=== PATIENT | male | born 2000 | race Caucasian/White ===

== ENCOUNTER 2022-01-23 06:33 | Emergency (ER) | payer OTHER, SELFPAY ==
--- NOTE | ~2022-01-23 | CT_ITS ---
EXAMINATION: CT abdomen pelvis w con DATE: 01/23/2022 07:30 INDICATION: Upper abdominal pain. Cystic fibrosis. TECHNIQUE: Computed tomography (CT) of the abdomen and pelvis was performed with 100 mL Omnipaque-350 intravenous contrast. Automated exposure control and iterative reconstruction technique were employe d. The dose-length product was 209.72 mGy-cm. COMPARISON: 10/29/2015 FINDINGS: Lung bases are clear. The left inferior heart is normal. No pericardial or pleural effusion. Diffuse hepatic steatosis. Cholecystectomy clips the gallbladder fossa. 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 Bilateral adrenal glands and kidneys are normal. Large amount of stool throughout the colon consiste nt with constipation. Small bowel anastomosis in the left upper quadrant. There are fluid-filled loop s of small bowel but without manjit dilation to suggest obstruction. Normal retrocecal appendix. Bladd er is normal. No free intraperitoneal gas or fluid. No pathologically enlarged abdominal or pelvic ly mphadenopathy. Bones are unremarkable. IMPRESSION: 1. Large amount of colonic stool consistent with constipation. No other acute intra-abdominal/pelvic process. 2. 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 Reviewed, dictated and finalized at location A. IMPRESSION: 1. Large amount of colonic stool consistent with constipation. No other acute i ntra-abdominal/pelvic process. 2. Status post cholecystectomy, splenectomy and pancreatectomy with reported pr ior hepatic pancreatic islet cell transplant..
[2022-01-23 06:36] VITALS: BP 132/94; PULSE 95; RESP 18; TEMP 36.6; O2SAT 100
[2022-01-23 07:05] LABS: Basophils Absolute Auto 0.1 K/mm3 (0.0-0.1); Basophils Percent Auto 0.7 % (0.2-1.2); Eosinophils Absolute Auto 0.2 K/mm3 (0-0.3); Eosinophils Percent Auto 1.6 % (0-4.4); Hematocrit 35.1 % (42.0-52.0); Hemoglobin 11.7 g/dL (14.0-18.0); Immature Granulocyte Absolute 0.02 K/mm3 (0.00-0.031); Immature Granulocyte Percent A 0.2 % (0-0.5); Lymphocytes Absolute Auto 5.19 K/mm3 (0.9-3.2); Lymphocytes Percent Auto 46.6 % (18.3-44.2); Mean Corpuscular HGB Conc 33.3 g/dl (32-36); Mean Corpuscular Hemoglobin 31.4 pg (26-34); Mean Corpuscular Volume 94.1 fl (80-100); Mean Platelet Volume 10.2 fl (7.4-10.4); Monocytes Absolute Auto 1.6 K/mm3 (0.1-0.6); Monocytes Percent Auto 13.9 % (2.6-8.5); Neutrophils Absolute Auto 4.1 K/mm3 (1.3-6.7); Platelet Count Result 261 k/mm3 (150-375); Red Blood Count 3.73 M/mm3 (4.6-6.20); Red Cell Distribution Width 12.5 % (11.5-14.5); White Blood Count 11.1 K/mm3 (4.5-10.0)
[2022-01-23] MEDS: SODIUM CHLORIDE 0.9% IV 1,000 ML 999 ML IV CONT (07:06)
--- NOTE | 2022-01-23 07:08 | ED.ABDPAIN ---
HPI - Abdominal Pain General Chief Complaint: Abdominal Pain Stated Complaint: abdominal pain, anxiety Time Seen by Provider: 01/23/22 06:47 Source: patient Mode of arrival: ambulatory Limitations: no limitations History of Present Illness HPI narrative: Patient is a 21-year-old male complaining of upper epigastric pain accompanied by nausea that started last night. Patient states his pain is sharp, 7 out of 10, nonradiating. Patient denies any chest pain, shortness of breath, vomiting, diarrhea, urinary symptoms, fever or chills. Patient states that he has a history of pancreatic surgery in the past due to pancreatitis. Related Data Home Medications Medication Instructions Recorded Confirmed mezboj-oanoexrj-aogdrzf [Creon] cap PO 01/23/22 01/23/22 Allergies Allergy/AdvReac Type Severity Reaction Status Date / Time morphine Allergy Intermediate Unknown Verified 01/23/22 06:52 Sulfa (Sulfonamide Allergy Unknown Unknown Verified 01/23/22 06:52 Antibiotics) Review of Systems Review of Systems: All systems reviewed & are unremarkable except as noted in HPI and below Constitutional: Constitutional: Denies body ache(s), Denies chills, Denies excessive sweating, Denies fatigue, Denies fever(s), Denies headache(s), Denies lethargy, Denies malaise, Denies weakness and Denies weight loss Eyes: Eyes: Denies blurry vision, Denies change in vision and Denies loss of vision ENT: Denies dizziness, Denies ear discharge, Denies headache(s), Denies lip swelling, Denies epistaxis, Denies nasal congestion, Denies neck pain, Denies throat swelling and Denies tongue swelling Cardiovascular: Cardiovascular: Denies chest pain, Denies chest pain at rest, Denies chest pain with activity, Denies diaphoresis, Denies rapid heart rate, Denies edema, Denies irregular heart rhythm, Denies lightheadedness, Denies palpitations, Denies dyspnea and Denies dyspnea on exertion Respiratory: Respiratory: Denies chest congestion, Denies cough, Denies hemoptysis, Denies dyspnea and Denies dyspnea on exertion Gastrointestinal: Gastrointestinal: Denies melena, Denies hematochezia, Denies diarrhea, Denies vomiting and Denies hematemesis Musculoskeletal: Musculoskeletal: Denies abnormal gait, Denies deformity, Denies joint swelling, Denies limited range of motion, Denies neck pain and Denies numbness Neurologic: Denies Abnormal speech present, Denies abnormal gait, Denies confusion, Denies dizziness, Denies headache(s), Denies focal weakness, Denies loss of vision, Denies numbness, Denies Other visual disturbances, Denies Sensory deficit (Neuro) and Denies weakness Psychiatric: Psychiatric: Denies confusion, Denies depression, Denies auditory hallucinations, Denies homicidal ideation and Denies suicidal ideation Endocrine: Endocrine: Denies cold intolerance, Denies excessive sweating, Denies fatigue, Denies heat intolerance and Denies palpitations Hematologic/Lymphatic: Hematologic/Lymphatic: Denies easy bleeding and Denies easy bruising Allergic/Immunologic: Allergic/Immunologic: Denies lip swelling, Denies throat swelling and Denies tongue swelling PMFSH Past Medical History Medical History Anxiety Cystic fibrosis Surgical History Surgical History History of pancreatectomy Family History Family History Other Carcinoma of colon Colon polyp Diabetes mellitus Heart disease Hypertension Thyroid disorder Social History Social History Tobacco type: e-cigarettes/vaping Alcohol intake: never Substance use: never Course Vital Signs Vital signs: Vital Signs Temperature 36.6 C 01/23/22 06:36 Pulse Rate 95 01/23/22 06:36 Respiratory Rate 18 01/23/22 06:36 Blood Pressure 132/94 H 01/23/22 06:36 Pulse
[2022-01-23 07:17] LABS: Alanine Aminotransferase 32 U/L (4-50); Albumin Level 3.7 g/dL (3.5-5.1); Alkaline Phosphatase 146 U/L (38-126); Anion Gap 7 mmol/L (8-16); Aspartate Amino Transferase 47 U/L (17-59); Bilirubin,Total 0.9 mg/dL (0.2-1.3); Blood Urea Nitrogen 6 mg/dL (9-20); Calcium 8.1 mg/dL (8.4-10.2); Carbon Dioxide 32 mmol/L (22-30); Chloride 99 mmol/L (98-107); Estimated CRCL calculation 120 ml/min; Estimated Glomerular Filt Rate > 60; Glucose 96 mg/dL (65-110); Sodium 138 mmol/L (137-145)
[2022-01-23 07:18] LABS: Lipase < 10 U/L (23-300)
[2022-01-23 07:22] LABS: Appearance Urine Clear (Clear); Bilirubin Urine Negative (Negative); Blood Urine Negative (Negative); Color Urine Yellow (Yellow); Glucose Urine UA Negative (Negative); Ketones Urine Negative (Negative); Leukocyte Esterase Ur Negative LEU/UL (Negative); Nitrate Urine Negative (Negative); Protein Urine Negative (Negative); Urobilinogen Urine 0.2 mg/dL (<2.0)
--- NOTE | 2022-01-23 07:25 | PC.NURSE ---
Pt in CT scan via stretcher at this time.
[2022-01-23 07:40] LABS: Add Urine Microscopic? NO
[2022-01-23] MEDS: PROMETHAZINE HCL 25 MG/ML AMPUL 12.5 MG IV PUSH (07:48)
[2022-01-23 07:59] VITALS: BP 124/71; PULSE 98; RESP 14; O2SAT 97
[2022-01-23 09:02] VITALS: BP 127/82; PULSE 103; RESP 15; O2SAT 100
[2022-01-23] MEDS: POTASSIUM CHLORIDE 20 MEQ PACKET (FOR LIQUID) 40 MEQ PO (09:02)
== END 2022-01-23 09:35 | disposition home or self-care (01) ==
PROVIDERS: Emergency Provider Emergency Medicine; PCP Family Medicine
DX: R10.13 Epigastric pain (principal); R11.0 Nausea; E84.9 Cystic fibrosis, unspecified; F17.290 Nicotine dependence, other tobacco product, uncomplicated; Z90.410 Acquired total absence of pancreas; Z90.81 Acquired absence of spleen
CPT/HCPCS: 36415; 74177; 80053; 81003; 83690; 85025; 96361; 96374; 99284; A9270; J2550; J7030; Q9967

== ENCOUNTER 2022-10-09 08:16 | Emergency (ER) | payer OTHER, SELFPAY ==
[2022-10-09] VITALS (23 sets, daily range): BP systolic 120–141; BP diastolic 84–94; PULSE 80–116; RESP 12–27; TEMP 36.6; O2SAT 94–100
--- NOTE | ~2022-10-09 | CT_ITS ---
EXAMINATION: CT abdomen pelvis w con DATE: 10/09/2022 10:20 INDICATION: Abdominal pain. TECHNIQUE: Computed tomography (CT) of the abdomen and pelvis was performed with 100 mL Omnipaque 350 intravenous contrast. Automated exposure control and iterative reconstruction technique were employe d. The dose-length product was 215.12 mGy-cm. COMPARISON: CT abdomen and pelvis 01/23/2022 FINDINGS: The visualized portions of the lung bases are clear without pneumonia or pleural effusion. The heart size is normal. No pericardial effusion. The liver is normal. There are changes of cholecys tectomy. There are changes of splenectomy and pancreatectomy. The adrenal glands are normal. Right ki dney is normal. There is a 13 mm stone in left kidney. There is mild left hydronephrosis and hydroure ter. There is urothelial thickening and enhancement in left renal pelvis. There is a large volume of stool in the colon. The colon is distended. There are no pathologically enlarged lymph nodes. There i s no free intraperitoneal fluid. There are old healed right rib fractures. IMPRESSION: 1. Distention of the colon with large volume of stool. 2. Left-sided pyelitis. Mild left hydronephrosis and hydroureter may be secondary to mass effect from the distended colon. 3. Nonobstructing left kidney stone. Reviewed, dictated and finalized at location A. RECLAIM PROCESSOR IMPRESSION: 1. Distention of the colon with large volume of stool. 2. Left-sided pyelitis. Mild left hydronephrosis and hydroureter may be seconda ry to mass effect from the distended colon. 3. Nonobstructing left kidney stone.
--- NOTE | ~2022-10-09 | XR_ITS ---
EXAMINATION: XR chest 2V DATE: 10/09/2022 09:01 INDICATION: Chest pain. TECHNIQUE: Frontal and lateral views of the chest were obtained. COMPARISON: None. FINDINGS: There is no pneumonia, pleural effusion, or pneumothorax. There are old healed right rib fr actures. There are surgical clips in the abdomen. IMPRESSION: 1. No acute cardiopulmonary disease. Reviewed, dictated and finalized at location A. 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
--- NOTE | 2022-10-09 08:17 | ECG_ITS ---
Measurements Intervals [place] Rate: 89 P: 79 VA: 193 QRS: 64 QRSD: 129 T: 60 QT: 337 QTc: 411 Interpretive Statements SINUS RHYTHM MODERATE INTRAVENTRICULAR CONDUCTION DELAY [110+ ms QRS DURATION] NONSPECIFIC T-WAVE ABNORMALITY NO PREVIOUS ECG AVAILABLE FOR COMPARISON Electronically Signed On 10-09-2022 11:45:21 FLY WORKER by Janae Rees M.D.
--- NOTE | 2022-10-09 08:57 | PC.NURSE ---
Patient of unit to Radiology.
[2022-10-09] MEDS: LACTATED RINGERS 1,000 ML 999 ML IV CONT (09:10)
[2022-10-09] MEDS: ONDANSETRON INJ 4 MG/2 ML VIAL IV PUSH (09:10)
[2022-10-09] MEDS: KETOROLAC 15 MG/ML VIAL (*BKC) IV PUSH (09:10)
--- NOTE | 2022-10-09 09:13 | ED.GENADULT ---
HPI - General Adult General Chief complaint: Chest Pain Stated complaint: L sided cp Time Seen by Provider: 10/09/22 08:28 History of Present Illness HPI narrative: 22-year-old male with a history of cystic fibrosis, multiple abdominal surgeries presents for evaluation of left-sided rib and flank pain which is constant and nonradiating. Pain has been worsening over the past week. No vomiting. No bowel or bladder complaints. Related Data Home Medications Medication Instructions Recorded Confirmed bytawh-fsajchqa-uphlxci cap PO 01/23/22 01/23/22 12,000-38,000-60,000 unit capsule,delayed rel (Creon) Allergies Allergy/AdvReac Type Severity Reaction Status Date / Time morphine Allergy Intermediate Unknown Verified 10/09/22 09:09 Sulfa (Sulfonamide Allergy Unknown Unknown Verified 10/09/22 09:09 Antibiotics) Review of Systems Review of Systems: CONSTITUTIONAL: Denies fever, chills, or sweats. EYES: Denies visual changes, redness, or discharge. ENT: Denies rhinorrhea, congestion, sore throat, or otalgia. CARDIOVASCULAR: Denies chest pain, palpitations, or edema. RESPIRATORY: Denies cough or dyspnea. GASTROINTESTINAL: Denies abdominal pain, nausea, vomiting, or diarrhea. GENITOURINARY: Denies dysuria or hematuria. SKIN: Denies rash or itching. MUSCULOSKELETAL: Denies back pain, joint pain, or myalgia. NEUROLOGIC: Denies headache, numbness, or weakness. PSYCHIATRIC: Denies anxiety or depression. PMFSH Past Medical History Medical History Anxiety Cystic fibrosis Surgical History Surgical History History of pancreatectomy Family History Family History Other Carcinoma of colon Colon polyp Diabetes mellitus Heart disease Hypertension Thyroid disorder Social History Social History Tobacco type: e-cigarettes/vaping Alcohol intake: never Substance use: never Exam Narrative: GENERAL: Well-appearing, well-nourished, and in no acute distress. Cachectic HEAD: Normocephalic, atraumatic. EYES: PERRLA and EOMI. ENT: Nares clear, no rhinorrhea or epistaxis. Mucous membranes moist. NECK: Supple. CHEST: Clear to auscultation. No respiratory distress. HEART: Regular rate and rhythm. No murmur heard. Normal peripheral pulses. ABDOMEN: Soft, nontender, nondistended, normal active bowel sounds. EXTREMITIES: Normal range of motion. No edema. SKIN: Warm, dry, no rash. NEURO: No focal deficits. Alert and oriented x3. PSYCH: Normal mood and affect. Course Vital Signs Vital signs: Vital Signs Temperature 97.8 F 10/09/22 08:20 Pulse Rate 92 10/09/22 08:20 Respiratory Rate 20 10/09/22 08:20 Blood Pressure 141/94 H 10/09/22 08:20 Pulse Oximetry 99 10/09/22 08:20 Oxygen Delivery Room Air 10/09/22 08:20 Temperature 97.8 F 10/09/22 08:20 Pulse Rate 80 10/09/22 12:45 Respiratory Rate 16 10/09/22 12:45 Blood Pressure 130/84 10/09/22 12:45 Pulse Oximetry 97 10/09/22 12:45 Oxygen Delivery Room Air 10/09/22 09:10 Medical Decision Making MDM Narrative Medical decision making narrative: 1. Distention of the colon with large volume of stool. 2. Left-sided pyelitis. Mild left hydronephrosis and hydroureter may be secondary to mass effect from the distended colon. 3. Nonobstructing left kidney stone. The stone and significant stool burden noted in descending colon. Patient does admit to chronic constipation. No other pathology noted and labs are reassuring. Hematuria likely secondary to his nonobstructive kidney stone. He is stable for discharge home. I discussed all lab, imaging and exam findings with the patient and her friend at the bedside, all questions were answered, additional verbal discharge instructions and return to ED pr
[2022-10-09 09:15] LABS: Basophils Absolute Auto 0.1 K/mm3 (0.0-0.1); Basophils Percent Auto 0.4 % (0.2-1.2); Eosinophils Absolute Auto 0.1 K/mm3 (0-0.3); Eosinophils Percent Auto 0.5 % (0-4.4); Hemoglobin 13.1 g/dL (14.0-18.0); Immature Granulocyte Absolute 0.04 K/mm3 (0.00-0.031); Immature Granulocyte Percent A 0.3 % (0-0.5); Lymphocytes Absolute Auto 1.62 K/mm3 (0.9-3.2); Lymphocytes Percent Auto 12.9 % (18.3-44.2); Mean Corpuscular HGB Conc 32.8 g/dl (32-36); Mean Corpuscular Hemoglobin 29.9 pg (26-34); Mean Corpuscular Volume 91.3 fl (80-100); Mean Platelet Volume 9.9 fl (7.4-10.4); Monocytes Absolute Auto 1.1 K/mm3 (0.1-0.6); Monocytes Percent Auto 8.8 % (2.6-8.5); Neutrophils Absolute Auto 9.7 K/mm3 (1.3-6.7); Neutrophils Percent Auto 77.1 % (45.5-73.1); Platelet Count Result 381 k/mm3 (150-375); Red Blood Count 4.38 M/mm3 (4.6-6.20); Red Cell Distribution Width 13.8 % (11.5-14.5); White Blood Count 12.5 K/mm3 (4.5-10.0)
--- NOTE | 2022-10-09 09:20 | PC.NURSE ---
Patient off unit to CT.
[2022-10-09 09:21] LABS: Add Urine Microscopic? YES; Appearance Urine Clear (Clear); Bilirubin Urine Negative (Negative); Blood Urine 3+ (Negative); Color Urine Light Yellow (Yellow); Glucose Urine UA Negative (Negative); Ketones Urine Negative (Negative); Leukocyte Esterase Ur Negative LEU/UL (Negative); Nitrate Urine Negative (Negative); Protein Urine 2+ mg/dL (Negative); Specific Grav Ur 1.025 (1.001-1.035); Urobilinogen Urine 0.2 mg/dL (<2.0)
[2022-10-09 09:25] LABS: Alanine Aminotransferase 33 U/L (6-50); Albumin Level 3.9 g/dL (3.5-5.1); Alkaline Phosphatase 239 U/L (38-126); Anion Gap 8 mmol/L (8-16); Aspartate Amino Transferase 48 U/L (17-59); Bilirubin,Total 1.1 mg/dL (0.2-1.3); Blood Urea Nitrogen 8 mg/dL (9-20); Calcium 8.3 mg/dL (8.4-10.2); Carbon Dioxide 33 mmol/L (22-30); Chloride 98 mmol/L (98-107); Estimated Glomerular Filt Rate > 60; Glucose 142 mg/dL (65-110); Magnesium 1.7 mg/dL (1.6-2.3); Potassium 3.8 mmol/L (3.4-5.0); Sodium 139 mmol/L (137-145)
[2022-10-09 09:26] LABS: Lipase < 10 U/L (23-300)
[2022-10-09 09:34] LABS: Bacteria Urine Trace /hpf; Calcium Oxalate Crystals Urine Present /hpf; Mucus Urine Rare /lpf; RBC Urine >75 /hpf (0-2); Squamous Epithelial Cell Urine Rare /hpf (Few)
[2022-10-09 09:52] LABS: Acanthocytes 1+ (NORMAL); Anisocytosis 1+ (NORMAL); Ovalocytes 1+ (NORMAL); Schistocytes None Seen (NORMAL)
--- NOTE | 2022-10-09 11:12 | PC.NURSE ---
Patient report given to GRACIE Corona. All questions answered and care of patient transferred.
[2022-10-09] MEDS: PEG (High)/E-LYTE SOLN 4,000 ML BTL 4000 ML PO (13:27)
== END 2022-10-09 13:15 | disposition home or self-care (01) ==
PROVIDERS: Emergency Provider Emergency Medicine; PCP Family Medicine
DX: K59.00 Constipation, unspecified (principal); E84.9 Cystic fibrosis, unspecified; F17.290 Nicotine dependence, other tobacco product, uncomplicated; I45.9 Conduction disorder, unspecified; R94.31 Abnormal electrocardiogram [ECG] [EKG]; N13.6 Pyonephrosis
CPT/HCPCS: 36415; 71046; 74177; 80053; 81001; 83690; 83735; 85025; 93005; 96361; 96374; 96375; 99284; A9270; J1885; J2405; J7120; Q9967

== ENCOUNTER 2023-09-29 10:11 | Day surgery (SDC) | payer OTHER, SELFPAY ==
[2023-09-29] VITALS (10 sets, daily range): BP systolic 102–158; BP diastolic 56–107; PULSE 44–66; RESP 12–18; TEMP 36.4–36.8; O2SAT 99–100
--- NOTE | ~2023-09-29 | CT_ITS ---
CT of the Abdomen and Pelvis: Indication: Abdominal pain Technique: 2.5 mm axial scans were obtained through the abdomen and pelvis following intravenous adm inistration of 100 cc of Omnipaque 350. Dose reduction technique was used on this scan by utilizing a utomated exposure control and iterative reconstruction technique. The dose-length product (DLP) was 2 23.11 mGy-cm. COMPARISON: 10/09/2022 Findings: Scans through the lung bases are unremarkable. The liver, adrenals and right kidney are within normal limits. Cholecystectomy clips are present. 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 There is a 1.1 x 0.9 cm stone at the very proximal left ureter, with Hounsfield units of 1000, with moderate left hydronephrosis. No evidence of aortic aneurysm. No lymphadenopathy. No bowel obstruction or bowel wall thickening. Large amount of stool suggests constipation.. Images through the pelvis were performed. Urinary bladder unremarkable. No pelvic mass seen. No ascit es. Impression: 1.1 x 0.9 cm proximal left ureteral stone with moderate left hydronephrosis, as detailed above. Postoperative changes, as above. Constipation. Reviewed, dictated and finalized at location . D APPLICATION ENGINEER Impression: 1.1 x 0.9 cm proximal left ureteral stone with moderate left hydronephrosis, as detailed above. Postoperative changes, as above. Constipation.
--- NOTE | ~2023-09-29 | XR_ITS ---
EXAMINATION: XR retrograde pyelo w/stent LT DATE: 09/29/2023 14:11 INDICATION: Left internal ureteral stent placement TECHNIQUE: Fluoroscopic images from a left internal ureteral stent placement are submitted for review . 17 seconds of fluoroscopy time. FINDINGS: There is a left double-J internal ureteral stent projecting in expected position, with proximal [place] loop at the level of the renal pelvis. The distal loop is not visualized.. IMPRESSION: 1. Left internal ureteral stent placement. Please refer to real-time procedural findings for detail s. Reviewed, dictated and finalized at location L. WORKER IMPRESSION: 1. Left internal ureteral stent placement. Please refer to real-time procedur al findings for details.
--- NOTE | ~2023-09-29 | XR_ITS ---
XR abdomen/kub 1V 09/29/2023 13:39 Indication: Left proximal stone. Procedure: KUB Comparison: 12/15/2015 Findings: There is left hydronephrosis. There is focal narrowing at the left UPJ, suspicious for UPJ obstruction. There are nearby surgical changes in the left upper abdomen. Right renal collecting syst em is unremarkable. There is a large amount of gas in the sigmoid colon. Moderate colonic fecal loadi ng. Impression: 1: Possible left UPJ obstruction. 2: Large amount of retained fecal material in the colon with moderate dilation of the sigmoid colon. Reviewed, dictated and finalized at location L. ONAL ACCOUNT MANAGER Impression: 1: Possible left UPJ obstruction. 2: Large amount of retained fecal material in the colon with moderate dilation of the sigmoid colon.
[2023-09-29 11:25] LABS: Basophils Absolute Auto 0.1 K/mm3 (0.0-0.1); Basophils Percent Auto 0.5 % (0.2-1.2); Eosinophils Absolute Auto 0.2 K/mm3 (0-0.3); Eosinophils Percent Auto 1.1 % (0-4.4); Hematocrit 37.4 % (42.0-52.0); Hemoglobin 12.3 g/dL (14.0-18.0); Immature Granulocyte Absolute 0.07 K/mm3 (0.00-0.031); Immature Granulocyte Percent A 0.4 % (0-0.5); Lymphocytes Absolute Auto 2.75 K/mm3 (0.9-3.2); Lymphocytes Percent Auto 17.7 % (18.3-44.2); Mean Corpuscular HGB Conc 32.9 g/dl (32-36); Mean Corpuscular Hemoglobin 30.3 pg (26-34); Mean Corpuscular Volume 92.1 fl (80-100); Mean Platelet Volume 9.5 fl (7.4-10.4); Monocytes Absolute Auto 1.9 K/mm3 (0.1-0.6); Monocytes Percent Auto 12.3 % (2.6-8.5); Neutrophils Absolute Auto 10.6 K/mm3 (1.3-6.7); Platelet Count Result 325 k/mm3 (150-375); Red Blood Count 4.06 M/mm3 (4.6-6.20); Red Cell Distribution Width 12.7 % (11.5-14.5); White Blood Count 15.6 K/mm3 (4.5-10.0)
[2023-09-29 11:37] LABS: Appearance Urine Cloudy (Clear); Bilirubin Urine Negative (Negative); Blood Urine 1+ (Negative); Color Urine Yellow (Yellow); Glucose Urine UA Negative (Negative); Ketones Urine Trace mg/dL (Negative); Leukocyte Esterase Ur 2+ LEU/UL (Negative); Nitrate Urine Negative (Negative); Protein Urine Negative (Negative); Specific Grav Ur 1.012 (1.001-1.035); Urobilinogen Urine 0.2 mg/dL (<2.0); pH Urine 5.5 (5.0-9.0)
[2023-09-29] MEDS: SODIUM CHLORIDE 0.9% IV 1,000 ML 999 ML IV CONT ×2 (11:39→12:40)
[2023-09-29] MEDS: fentaNYL CITRATE INJ (*CRX) 100 MCG/2 ML VIAL 25 MCG IV PUSH ×2 (11:39→14:47)
[2023-09-29] MEDS: ONDANSETRON INJ 4 MG/2 ML VIAL IV PUSH (11:39)
[2023-09-29 11:40] LABS: Alanine Aminotransferase 27 U/L (6-50); Albumin Level 4.6 g/dL (3.5-5.1); Alkaline Phosphatase 166 U/L (38-126); Anion Gap 11 mmol/L (8-16); Aspartate Amino Transferase 35 U/L (17-59); Bilirubin,Total 1.9 mg/dL (0.2-1.3); Blood Urea Nitrogen 7 mg/dL (9-20); Calcium 9.2 mg/dL (8.4-10.2); Carbon Dioxide 27 mmol/L (22-30); Chloride 98 mmol/L (98-107); Estimated CRCL calculation 103 ml/min; Estimated Glomerular Filt Rate > 60; Glucose 125 mg/dL (65-110); Potassium 3.8 mmol/L (3.4-5.0); Sodium 136 mmol/L (137-145)
[2023-09-29 11:48] LABS: Bacteria Urine None Seen /hpf; Non Pathogenic Casts 0-2; Squamous Epithelial Cell Urine Occasional /hpf (Few); WBC Urine 21-50 /hpf
[2023-09-29 11:50] LABS: Add Urine Microscopic? YES
[2023-09-29 12:02] LABS: Lactic Acid Reflex 1.1 mmol/L (0.7-2.0); Magnesium 1.7 mg/dL (1.6-2.3)
[2023-09-29 12:09] LABS: Lipase < 10 U/L (23-300)
--- NOTE | 2023-09-29 12:16 | ED.NAVMDI ---
HPI - Nausea/Vomiting/Diarrhea General Chief complaint: Nausea/Vomiting/Diarrhea <YONATAN Bullock Last Filed: 09/29/23 18:46> Stated complaint: N/V ABD PAIN X2 DAYS <YONATAN Bullock Last Filed: 09/29/23 18:46> Time Seen by Provider: 09/29/23 11:04 <YONATAN Bullock Last Filed: 09/29/23 18:46> Source: patient <YONATAN Bullock Last Filed: 09/29/23 18:46> Mode of arrival: ambulatory <YONATAN Bullock Last Filed: 09/29/23 18:46> Limitations: no limitations <YONATAN Bullock Last Filed: 09/29/23 18:46> History of Present Illness HPI Narrative: Patient is a 23-year-old male, with past medical history of cystic fibrosis, who presents to the ED with report of upper abdominal pain. Patient reports having constant pain for the last 3 days. Pain waxes and wanes in severity. No significant aggravating or relieving factors. Radiates around to left mid back/left flank. He has not tried anything for the pain. 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 He states he does have intermittent episodes of pain related to this, but states this episode has been more severe and persistent. Reports nausea, intermittent vomiting. Denies diarrhea, constipation, fevers, dysuria, hematuria. <YONATAN Bullock Last Filed: 09/29/23 18:46> Related Data Home medications: Home Medications Medication Instructions Recorded Confirmed kawrur-wwmdkioi-cesbfni cap PO 01/23/22 10/15/22 12,000-38,000-60,000 unit capsule,delayed rel (Creon) <YONATAN Bullock Last Filed: 09/29/23 18:46> Allergies/Adverse reactions: Allergies Allergy/AdvReac Type Severity Reaction Status Date / Time morphine Allergy Intermediate Other Verified 09/29/23 13:46 Sulfa (Sulfonamide Allergy Unknown Hives Verified 09/29/23 13:46 Antibiotics) <Genia Abernathy PA-C - Last Filed: 09/29/23 18:46> Review of Systems Review of Systems: CONSTITUTIONAL: Denies fever, chills, or sweats. CARDIOVASCULAR: Denies chest pain, palpitations, or edema. RESPIRATORY: Denies cough or dyspnea. GASTROINTESTINAL: See HPI. GENITOURINARY: Denies dysuria or hematuria. SKIN: Denies rash or itching. MUSCULOSKELETAL: See HPI. <Genia Abernathy PA-C - Last Filed: 09/29/23 18:46> All systems reviewed & are unremarkable except as noted in HPI and below <Genia Abernathy PA-C - Last Filed: 09/29/23 18:46> PMFSH Past Medical History Medical History: Medical History Anxiety Cystic fibrosis <Genia Abernathy PA-C - Last Filed: 09/29/23 18:46> Surgical History Surgical History: Surgical History History of pancreatectomy <Genia Abernathy PA-C - Last Filed: 09/29/23 18:46> Family History Family History: Family History Other Carcinoma of colon Colon polyp Diabetes mellitus Heart disease Hypertension Thyroid disorder <YONATAN Bullock Last Filed: 09/29/23 18:46> Social History Social History: Social History Smoking status: Current some day smoker (vapes) Tobacco type: e-cigarettes/vaping Alcohol intake: never Substance use: never <YONATAN Bullock Last Filed: 09/29/23 18:46> Exam Narrative: GENERAL: Mildly uncomfortable appearing, thin, non-toxic, in no acute distress. HEAD: Normocephalic, atraumatic. NECK: Supple. No adenopathy, no masses. RESPIRATORY: Airway patent, respirations nonlabored. Clear to auscultation bilaterally, no rales, rhonchi, wheezing. No significant focal lung sounds. CARDIOVASCULAR: Regular rate
[2023-09-29] MEDS: HYDROmorphone HCL INJ (*CRX) 1 MG/ML SYR 0.5 MG IV PUSH (12:40)
[2023-09-29] MEDS: LACTATED RINGERS 1,000 ML 30 ML IV CONT (13:15)
--- NOTE | 2023-09-29 13:29 | WPDANESEPPF ---
Anes - Initial Pre Proc Eval Procedure: Operation Date: 09/29/23 14:15 Proposed Procedures p Cystoscopy, Left Retrograde Pyelogram, Left Stent Placement - Keenan Randall MD Date/Time: 09/29/23 13:29 Surgeon: Keenan Randall MD Pre Op Diagnosis: PER SURGERY SCHEDULE Patient Data Age: 23 Gender: M Height: 1.83 m Weight: 59 kg Last Vital Signs Temp 36.5 C 09/29/23 10:29 Pulse 66 09/29/23 12:45 Resp 15 09/29/23 12:45 BP 158/107 H 09/29/23 12:45 Pulse Ox 100 09/29/23 12:45 Allergies Allergy/AdvReac Type Severity Reaction Status Date / Time morphine Allergy Intermediate Unknown Verified 09/29/23 11:13 Sulfa (Sulfonamide Allergy Unknown Unknown Verified 09/29/23 11:13 Antibiotics) Home Medications Medication Instructions Recorded Confirmed Type albuterol sulfate 90 mcg/actuation 1 inh inhalation Q4H PRN shortness 11/12/21 10/15/22 Rx aerosol inhaler of breath or wheezing #8.5 grams kupffs-eqvxtitv-tplbory cap PO 01/23/22 10/15/22 History 12,000-38,000-60,000 unit capsule,delayed rel (Creon) bisacodyl 10 mg rectal suppository 10 mg RECTAL DAILY PRN 10/09/22 10/15/22 Rx (Dulcolax (bisacodyl)) constipation #12 ea psyllium seed (sugar) oral powder 1 tbsp PO DAILY #1,254 grams 10/09/22 10/15/22 Rx (Metamucil (sugar) oral powder) phenazopyridine 200 mg tablet 200 mg PO TID 6 doses #6 tabs 10/14/22 10/14/22 Rx (Pyridium) oxycodone 5 mg tablet 5 mg PO Q8H PRN pain #14 tabs 10/15/22 10/15/22 Rx duloxetine 60 mg capsule,delayed 60 mg PO DAILY #30 caps 03/23/23 Rx release Laboratory Tests 09/29/23 09/29/23 11:14 11:38 WBC 15.6 H K/mm3 (4.5-10.0) RBC 4.06 L M/mm3 (4.6-6.20) Hgb 12.3 L g/dL (14.0-18.0) Hct 37.4 L % (42.0-52.0) MCV 92.1 fl (80-100) MCH 30.3 pg (26-34) MCHC 32.9 g/dl (32-36) RDW 12.7 % (11.5-14.5) Plt Count 325 k/mm3 (150-375) MPV 9.5 fl (7.4-10.4) Immature Gran % (Auto) 0.4 % (0-0.5) Neut % (Auto) 68.0 % (45.5-73.1) Lymph % (Auto) 17.7 L % (18.3-44.2) [place] % (Auto) 12.3 H % (2.6-8.5) Eos % (Auto) 1.1 % (0-4.4) Baso % (Auto) 0.5 % (0.2-1.2) Lymph # (Auto) 2.75 K/mm3 (0.9-3.2) [place] # (Auto) 1.9 H K/mm3 (0.1-0.6) Eos # (Auto) 0.2 K/mm3 (0-0.3) Baso # (Auto) 0.1 K/mm3 (0.0-0.1) Abs Immat Gran (auto) 0.07 H K/mm3 (0.00-0.031) Absolute Neuts (auto) 10.6 H K/mm3 (1.3-6.7) Absolute Nucleated RBC 0.0 K/mm3 (0.0-0.012) Nucleated RBC % 0.0 % (0.0-0.2) Sodium 136 L mmol/L Cancelled (137-145) Potassium 3.8 mmol/L Cancelled (3.4-5.0) Chloride 98 mmol/L Cancelled (98-107) Carbon Dioxide 27 mmol/L Cancelled (22-30) Anion Gap 11 mmol/L Cancelled (8-16) BUN 7 L mg/dL Cancelled (9-20) Creatinine 0.80 mg/dL Cancelled (0.7-1.3) Estim Creat Clear Calc 103 ml/min Cancelled Estimated GFR > 60 Cancelled (59 - ) Glucose 125 H mg/dL Cancelled (65-110) Lactic Acid 1.1 mmol/L (0.7-2.0) Calcium 9.2 mg/dL Cancelled (8.4-10.2) Magnesium 1.7 mg/dL (1.6-2.3) Total Bilirubin 1.9 H mg/dL Cancelled (0.2-1.3) AST 35 U/L Cancelled (17-59) ALT 27 U/L Cancelled (6-50) Alkaline Phosphatase 166 H U/L Cancelled (38-126) Total Protein 8.0 g/dL Cancelled (6.3-8.2) Albumin 4.6 g/dL Cancelled (3.5-5.1) Lipase < 10 L U/L Cancelled (23-300) Urine Color Yellow (Yellow) Urine Appearance Cloudy H (Clear) Urine pH 5.5 (5.0-9.0) Ur Specific [place] 1.012 (1.001-1.035) Urine Protein Negative mg/dL (Negative) Urine Glucose (UA) Negative mg/dL (Negative) Urine Ketones Trace H mg/dL (Negative) Ur Blood (Man) 1+ H (Negative)
--- NOTE | 2023-09-29 13:41 | WPDHPUPDATE1 ---
History and Physical Update Update Date/Time: 09/29/23 13:41 History and Physical has been reviewed, including an updated exam of the patient. There are NO changes in the patient's condition. Risks, benefits, and alternatives have been discussed and questions answered. Patient agrees to proceed with procedure. Proceed with cystoscopy, left retrograde pyelogram left ureteral stent placement
--- NOTE | 2023-09-29 13:41 | PM.IMHP ---
H&P: HPI History of Present Illness Date/Time: 09/29/23 13:41 Chief Complaint: Obstructing 1 cm left proximal ureteral stone with elevated white count and UTI Narrative: Pleasant 23-year-old male presented to the emergency room with some left flank pain but also some abdominal discomfort. Patient has cystic fibrosis and has had prior abdominal surgeries. Evaluation in the emergency room revealed a 1 cm left proximal ureteral stone with some hydronephrosis. Urinalysis had 2+ leukocytes with 21-50 white cells. [place] [address] creatinine 0.8. Patient denies any prior history of stones. Review of Systems Review of Systems: All systems reviewed & are unremarkable except as noted in HPI and below PMFSH Past Medical History Medical History Anxiety Cystic fibrosis Surgical History Surgical History History of pancreatectomy Family History Family History Other Carcinoma of colon Colon polyp Diabetes mellitus Heart disease Hypertension Thyroid disorder Social History Social History Smoking status: Current some day smoker (vapes) Tobacco type: e-cigarettes/vaping Alcohol intake: never Substance use: never Meds Home Medications and Allergies Home Medications Medication Instructions Recorded Confirmed Type albuterol sulfate 90 mcg/actuation 1 inh inhalation Q4H PRN shortness 11/12/21 10/15/22 Rx aerosol inhaler of breath or wheezing #8.5 grams mkrnaz-hvlzrjum-udcdish cap PO 01/23/22 10/15/22 History 12,000-38,000-60,000 unit capsule,delayed rel (Creon) bisacodyl 10 mg rectal suppository 10 mg RECTAL DAILY PRN 10/09/22 10/15/22 Rx (Dulcolax (bisacodyl)) constipation #12 ea psyllium seed (sugar) oral powder 1 tbsp PO DAILY #1,254 grams 10/09/22 10/15/22 Rx (Metamucil (sugar) oral powder) phenazopyridine 200 mg tablet 200 mg PO TID 6 doses #6 tabs 10/14/22 10/14/22 Rx (Pyridium) oxycodone 5 mg tablet 5 mg PO Q8H PRN pain #14 tabs 10/15/22 10/15/22 Rx duloxetine 60 mg capsule,delayed 60 mg PO DAILY #30 caps 03/23/23 Rx release Allergies Allergy/AdvReac Type Severity Reaction Status Date / Time morphine Allergy Intermediate Unknown Verified 09/29/23 11:13 Sulfa (Sulfonamide Allergy Unknown Unknown Verified 09/29/23 11:13 Antibiotics) Vital Signs Vital Signs - 24 hr 09/29/23 10:29 09/29/23 12:45 Temperature 36.5 C Pulse Rate 66 66 Respiratory Rate 14 15 Blood Pressure 133/79 158/107 H Pulse Oximetry 99 100 Exam Const: General: cooperative and no acute distress HENMT: Head: normal to inspection Resp: Effort & Inspection: normal respiratory effort Cardio: Rate: regular rate Rhythm: regular rhythm H&P: Results Labs Labs: Short CBC 09/29/23 Range/Units 11:14 WBC 15.6 H (4.5-10.0) K/mm3 Hgb 12.3 L (14.0-18.0) g/dL Hct 37.4 L (42.0-52.0) % Plt Count 325 (150-375) k/mm3 BMP 09/29/23 09/29/23 11:14 11:38 Sodium 136 L Cancelled Potassium 3.8 Cancelled Chloride 98 Cancelled Carbon Dioxide 27 Cancelled BUN 7 L Cancelled Creatinine 0.80 Cancelled Glucose 125 H Cancelled Calcium 9.2 Cancelled Liver Function 09/29/23 09/29/23 Range/Units 11:14 11:38 Total Bilirubin 1.9 H Cancelled (0.2-1.3) mg/dL AST 35 Cancelled (17-59) U/L ALT 27 Cancelled (6-50) U/L Alkaline Phosphatase 166 H Cancelled (38-126) U/L Albumin 4.6 Cancelled (3.5-5.1) g/dL Urine 09/29/23 Range/Units 11:14 Urine Color Yellow (Yellow) Urine Appearance Cloudy H (Clear) Urine pH 5.5 (5.0-9.0) Ur Specific [place] 1.012 (1.001-1.035) Urine Protein Negative (Negative) mg/dL Urine Glucose (UA) Negative (Negative) mg/dL Assessment and
[2023-09-29] MEDS: ceFAZolin 2 GM/D5W 50 ML 2 GM/50 ML BAG IVPB (13:48)
[2023-09-29] MEDS: LIDOCAINE HCL 2% GEL UROJET 10 ML PKG MUCOUS MEM (14:04)
--- NOTE | 2023-09-29 14:06 | W.PM.PROC2 ---
Procedure Note - Detailed Date of Procedure 09/29/23 Pre-op Diagnosis Obstructing left ureteral stone with hydro and UTI Post-op Diagnosis Same Procedure Performed Cystoscopy, left retrograde pyelogram, left ureteral stent placement Surgeon Keenan Randall MD Anesthesia General Description of Procedure Patient is taken to the operative suite correctly identified. Once anesthesia was obtained was placed in dorsal lithotomy position and prepped and draped usual sterile fashion. Twenty-two Thai scope was inserted urethra. He had these unusual striations just distal to the external sphincter which may be more inflammatory. The prostate itself is nonobstructive. The bladder was without any tumors. The left ureteral orifice was cannulated with a ureteral catheter and a pyelogram was performed. Contrast was still present in the kidney leading up to an obstructing stone in the proximal ureter. Was able to manipulate a guidewire past the stone up into the left renal pelvis. 4.8 Thai contour stent was then placed with the proximal end coiled in the renal pelvis and the distal in the bladder. Bladder was drained. 2% viscous lidocaine was inserted urethra patient is taken recovery stable condition. He is being discharged on pain meds antibiotics. Will await his urine culture. Will plan outpatient lithotripsy once he gets over this infection. This completes dictation this patient. Please send a copy of op note to my office Estimated Blood Loss 0 Drains Yes Packing No Pathology None sent Complications No immediate complications Condition Stable Disposition PACU
== END 2023-09-29 15:48 | disposition home or self-care (01) ==
LOC: ANHED 12:44 → ANHSURGERY 12:54
PROVIDERS: Emergency Provider Physician Assistant; PCP Family Medicine; Visit Provider Urology
PROC: (CPT 52352; principal; 2023-09-29 14:15)
DX: N13.2 Hydronephrosis with renal and ureteral calculous obstruction (principal); N39.0 Urinary tract infection, site not specified; F17.290 Nicotine dependence, other tobacco product, uncomplicated
CPT/HCPCS: 52332; 36415; 74018; 74177; 74420; 80053; 81001; 83605; 83690; 83735; 85025; 87086; 96361; 96374; 96375; 99285; C1769; C1894; C2617; J0690; J1170; J2250; J2405; J2704; J3010; J7030; J7120; Q9966; Q9967

== ENCOUNTER 2023-10-04 10:52 | Emergency (ER) | payer OTHER, SELFPAY ==
--- NOTE | ~2023-10-04 | CT_ITS ---
EXAMINATION: CT abdomen pelvis wo con DATE: 10/04/2023 12:26 INDICATION: Ureteral stone TECHNIQUE: Computed tomography (CT) of the abdomen and pelvis was performed without intravenous contr ast. The dose-length product (DLP) was 275.37 mGy-cm. Automated exposure control and iterative recons truction technique were employed. COMPARISON: 09/29/2013 FINDINGS: The lung bases are clear. The heart size is normal. Changes of cholecystectomy and splenect mirza are noted. The liver and adrenal glands are unremarkable. There are also changes of partial pancr eatectomy. There is a left internal ureteral stent in expected position. There is mild left hydrouret er. A 1.6 cm stone is present in the left renal pelvis adjacent to the stent. The right kidney is unr emarkable. No pathologically enlarged abdominal or pelvic lymph nodes are identified. No free intrape ritoneal gas is identified. A large volume of colonic stool is present. IMPRESSION: 1. 1.6 cm stone in the left renal pelvis with left internal ureteral stent in expected position and m ild left hydroureter. 2. Constipation. Reviewed, dictated and finalized at location F. ER IMPRESSION: 1. 1.6 cm stone in the left renal pelvis with left internal ureteral stent in e xpected position and mild left hydroureter. 2. Constipation.
[2023-10-04 10:57] VITALS: BP 153/97; PULSE 59; RESP 18; TEMP 37.1; O2SAT 100
--- NOTE | 2023-10-04 11:29 | ED.ABDPAIN ---
HPI - Abdominal Pain General Chief Complaint: Abdominal Pain Stated Complaint: left flank pain Time Seen by Provider: 10/04/23 11:29 Source: patient Mode of arrival: ambulatory Limitations: no limitations History of Present Illness HPI narrative: Barney is a 23-year-old male patient presenting to the ER today for left-sided flank pain. He reports he was seen on September 29 and was diagnosed with a renal calculi in the ureter. CT showed patient had a 1.1 x 0.9cm ureteral stone. States that the urologist Dr. Randall placed a stent on September 29 and sent him home with pain medication and antibiotics to treat a kidney infection. Patient reports he is out of his pain medication and is having severe pain. Is concerned that the renal stent may be displaced. Does report that his pain was tolerable while taking Percocet. Patient reports he has a follow-up appointment with his urologist tomorrow. Related Data Home Medications Medication Instructions Recorded Confirmed mucidl-iddndqos-skspaaz cap PO 01/23/22 10/15/22 12,000-38,000-60,000 unit capsule,delayed rel (Creon) Allergies Allergy/AdvReac Type Severity Reaction Status Date / Time morphine Allergy Intermediate Other Verified 09/29/23 13:46 Sulfa (Sulfonamide Allergy Unknown Hives Verified 09/29/23 13:46 Antibiotics) Review of Systems Review of Systems: Pertinent positives per HPI. Patient denies any fever, chills, rash, headache, visual changes, dizziness, cough, runny nose, sore throat, shortness of breath, chest pain, palpitations, nausea, vomiting, diarrhea, constipation, or any urinary issues. [facility] Past Medical History Medical History Anxiety Cystic fibrosis Surgical History Surgical History History of pancreatectomy Family History Family History Other Carcinoma of colon Colon polyp Diabetes mellitus Heart disease Hypertension Thyroid disorder Social History Social History Smoking status: Current some day smoker (vapes) Tobacco type: e-cigarettes/vaping Alcohol intake: never Substance use: never Comments At the time of my signature, I reviewed and agree with the nursing past medical, surgical, social, and family history. There is no relevant family history pertinent to the patient complaint. Exam Narrative: General: Well-developed, well nourished, in no apparent distress. Head: Normocephalic, atraumatic. Cardio: Regular rate and rhythm, s1 and s2 normal, no murmur appreciated. Resp: Clear to auscultation bilaterally, no rhonchi, rales, wheezing or rubs. Abdomen: Soft, pliable, bowel sounds present in all quadrants, tender to palpation over the left upper abdomen, no organomegly, positive left CVAT tenderness. Course Course Emergency Course: Portions of this record may have been created with voice recognition software. Vital Signs Vital signs: Vital Signs Temperature 37.1 C 10/04/23 10:57 Pulse Rate 59 L 10/04/23 10:57 Respiratory Rate 18 10/04/23 10:57 Blood Pressure 153/97 H 10/04/23 10:57 Pulse Oximetry 100 10/04/23 10:57 Temperature 37.1 C 10/04/23 10:57 Pulse Rate 59 L 10/04/23 10:57 Respiratory Rate 18 10/04/23 10:57 Blood Pressure 153/97 H 10/04/23 10:57 Pulse Oximetry 100 10/04/23 10:57 Vital signs reviewed MDM - Abdominal Pain MDM Narrative Medical decision making narrative: At the time of visit patient appears to be in distress with pain. His pain 9/10 at that time. Dilaudid 1 mg and Zofran 4 mg was given. This brought his pain down to a 2/10. Labs, urine, and CT was performed. CT shows 1.6 cm stone in the left renal pelvis adjacent to the renal stent with mild hydro nephrosis. White blood cell count is 15.1 whi
[2023-10-04] MEDS: SODIUM CHLORIDE 0.9% IV 1,000 ML 999 ML IV CONT (12:14)
[2023-10-04] MEDS: HYDROmorphone HCL INJ (*CRX) 1 MG/ML SYR IV PUSH ×2 (12:14→14:39)
[2023-10-04] MEDS: ONDANSETRON INJ 4 MG/2 ML VIAL IV PUSH ×2 (12:14→14:39)
[2023-10-04 12:20] LABS: Basophils Absolute Auto 0.1 K/mm3 (0.0-0.1); Basophils Percent Auto 0.5 % (0.2-1.2); Eosinophils Absolute Auto 0.2 K/mm3 (0-0.3); Eosinophils Percent Auto 1.4 % (0-4.4); Hematocrit 40.2 % (42.0-52.0); Hemoglobin 13.2 g/dL (14.0-18.0); Immature Granulocyte Absolute 0.05 K/mm3 (0.00-0.031); Immature Granulocyte Percent A 0.3 % (0-0.5); Lymphocytes Absolute Auto 1.91 K/mm3 (0.9-3.2); Lymphocytes Percent Auto 12.7 % (18.3-44.2); Mean Corpuscular HGB Conc 32.8 g/dl (32-36); Mean Corpuscular Hemoglobin 30.2 pg (26-34); Mean Platelet Volume 10.8 fl (7.4-10.4); Monocytes Absolute Auto 1.7 K/mm3 (0.1-0.6); Monocytes Percent Auto 10.9 % (2.6-8.5); Neutrophils Absolute Auto 11.2 K/mm3 (1.3-6.7); Neutrophils Percent Auto 74.2 % (45.5-73.1); Platelet Count Result 334 k/mm3 (150-375); Red Blood Count 4.37 M/mm3 (4.6-6.20); Red Cell Distribution Width 12.6 % (11.5-14.5); White Blood Count 15.1 K/mm3 (4.5-10.0)
[2023-10-04 12:31] LABS: Appearance Urine Clear (Clear); Bacteria Urine None Seen /hpf; Bilirubin Urine Negative (Negative); Blood Urine 3+ (Negative); Calcium Oxalate Crystals Urine Present /hpf; Color Urine Yellow (Yellow); Glucose Urine UA Negative (Negative); Ketones Urine Negative (Negative); Leukocyte Esterase Ur 1+ LEU/UL (Negative); Nitrate Urine Negative (Negative); Non Pathogenic Casts 0-2; Protein Urine 2+ mg/dL (Negative); RBC Urine >100 /hpf (0-2); Specific Grav Ur 1.011 (1.001-1.035); Squamous Epithelial Cell Urine None seen /hpf (Few); Urobilinogen Urine 0.2 mg/dL (<2.0)
[2023-10-04 12:32] LABS: Add Urine Microscopic? YES
[2023-10-04 12:36] LABS: Alanine Aminotransferase 28 U/L (6-50); Albumin Level 4.5 g/dL (3.5-5.1); Alkaline Phosphatase 173 U/L (38-126); Anion Gap 8 mmol/L (8-16); Aspartate Amino Transferase 27 U/L (17-59); Bilirubin,Total 1.5 mg/dL (0.2-1.3); Blood Urea Nitrogen 17 mg/dL (9-20); Calcium 9.4 mg/dL (8.4-10.2); Carbon Dioxide 28 mmol/L (22-30); Chloride 102 mmol/L (98-107); Estimated CRCL calculation 79 ml/min; Estimated Glomerular Filt Rate > 60; Glucose 113 mg/dL (65-110); Potassium 3.8 mmol/L (3.4-5.0); Sodium 138 mmol/L (137-145)
[2023-10-04 13:27] LABS: Lipase < 10 U/L (23-300)
[2023-10-04 14:51] VITALS: BP 158/94; PULSE 82; RESP 20; O2SAT 99
[2023-10-04 15:54] VITALS: BP 158/98; PULSE 80; RESP 19; O2SAT 96
== END 2023-10-04 15:56 | disposition home or self-care (01) ==
PROVIDERS: Emergency Provider Nurse Practitioner Family; PCP Family Medicine
DX: N13.2 Hydronephrosis with renal and ureteral calculous obstruction (principal); F17.210 Nicotine dependence, cigarettes, uncomplicated
CPT/HCPCS: 36415; 74176; 80053; 81001; 83690; 85025; 87086; 96361; 96374; 96375; 96376; 99284; J1170; J2405; J7030

== ENCOUNTER 2023-10-14 11:20 | Outpatient (CLI) | payer OTHER, SELFPAY ==
[2023-10-14 12:04] LABS: Prothrombin Time 13.7 Seconds (11.1-14.7)
== END 2023-10-14 11:21 | disposition home or self-care (01) ==
PROVIDERS: PCP Family Medicine; Visit Provider Urology
DX: Z01.818 Encounter for other preprocedural examination (principal); N20.0 Calculus of kidney
CPT/HCPCS: 36415; 85610; 85730; 87086

== ENCOUNTER 2023-10-22 00:29 | Day surgery (SDC) | payer OTHER, SELFPAY ==
[2023-10-13 14:31] VITALS: BMI 17.6
--- NOTE | 2023-10-13 14:38 | PC.NURSE ---
Report to the Outpatient Waiting Room, entrance under the green pavilion located off [facility], at time 12:00 on date 10/22/23. Planned Procedure Time: 2:00. Time changes happen often and if your time is changed the preop area will call you the afternoon before. - You and your visitor will be asked to self-screen and do not enter if you have any COVID symptoms. - A mask is optional within the hospital at this time. Patients may have clear liquids (water, carbonated beverages, clear teas, apple juice) until 3 hours prior to surgery with a maximum of 20 ounces. - No food from midnight until time of surgery Take the following medications with a SIP of water the morning of surgery: DULOXETINE, TRAMADOL IF NEEDED DO NOT STOP ANY OF YOUR OTHER PRESCRIPTION MEDICATIONS PRIOR TO SURGERY ?EXCEPT THE FOLLOWING Medications to discontinue per physician: N/A Date to take last dose: N/A Please no make-up, nail vietnamese, hairspray, perfume, deodorant, or body powder the day of surgery. No jewelry (including any body piercings) or valuables the day of surgery, leave them at home. Please take a shower or bath the night before, or the morning of, surgery with an antibacterial soap. Wear comfortable, loose fitting clothing. - Jewelry must be removed prior to entering the operating room. Rings and piercings that are not removed may be cut off. - The hospital will not accept responsibility for valuables. - Please leave all valuables, including medications, at home the day of surgery. If you are going home after surgery, a licensed driver starting gate must drive you home. - NO public transportation without another adult if you receive anesthesia. - We recommend that an adult stay with you for 24 hours following discharge. - We also recommend that you do not drive, make important decision, drink alcoholic beverages, or take any drugs that were not prescribed by your health care provider for at least 24 hours after your discharge time. Follow any additional instructions given to you from your surgeon. If you or anyone in your household have experienced Covid symptoms in the past week, please notify your surgeon or the nurse liaison at the phone number below for possible testing. Telephone instructions given to PT - ANGELLA WELLINGTON and asked if any additional questions and then verbalized understanding. Patient advised to call surgeon office or pre surgery nurse liaison [phone] if any additional questions.
--- NOTE | 2023-10-21 14:49 | P.PNAN_ITS ---
Anes - Initial Pre Proc Eval Procedure: Operation Date: 10/22/23 14:00 Proposed Procedures p Left Renal Extracorporeal Shock Wave Lithotripsy - Keenan Randall MD Date/Time: 10/21/23 14:49 Surgeon: Keenan Randall MD Pre Op Diagnosis: left renal kidney stones Patient Data Age: 23 Gender: M Height: 1.83 m Weight: 59 kg Allergies Allergy/AdvReac Type Severity Reaction Status Date / Time morphine Allergy Intermediate Swelling Verified 10/22/23 12:48 Sulfa (Sulfonamide Allergy Unknown Hives Verified 10/22/23 12:48 Antibiotics) Home Medications Medication Instructions Recorded Confirmed Type albuterol sulfate 90 mcg/actuation 1 inh inhalation Q4H PRN shortness 11/12/21 10/13/23 Rx aerosol inhaler of breath or wheezing #8.5 grams yvkulq-qimmhony-dossxuz 3 cap PO TIDWM 01/23/22 10/13/23 History 12,000-38,000-60,000 unit capsule,delayed rel (Creon) duloxetine 60 mg capsule,delayed 60 mg PO DAILY #30 caps 03/23/23 10/13/23 Rx release tramadol 50 mg tablet 50 mg PO Q6H PRN Pain 10/13/23 10/13/23 History Patient hx anesthesia problems: none Family hx anesthesia problems: none Results Review: All pre-operative results and documents have been reviewed as part of the pre- operative evaluation. [facility] Past Medical History Medical History (Updated 10/21/23 @ 14:49 by Drake Macias DO) Anxiety Cystic fibrosis Diabetes type 2, controlled Surgical History Surgical History History of pancreatectomy Family History Family History Other Carcinoma of colon Colon polyp Diabetes mellitus Heart disease Hypertension Thyroid disorder Social History Social History Smoking status: Current every day smoker Tobacco type: e-cigarettes/vaping Alcohol intake: never Alcohol use details: VERY RARE Substance use: current Substance use type: marijuana Living arrangements: with family Spiritual care concerns: No Anes - Eval Final PreProcedure Day of Procedure 10/21/23 14:49 Patient weight: normal Heart: regular rate and rhythm Lungs: clear to auscultation Airway: Mallampati scale class II Neurological: alert and oriented Last oral intake: >/= 8 hours ASA classification: III Emergent: no Anesthetic plan: proceed Anesthesia type and monitoring: general LMA and standard monitoring Results Review: All pre-operative results and documents have been reviewed as part of the pre- operative evaluation. Informed Consent: The patient's anesthetic plan and its attendant risks and benefits were discussed with the patient/family/POA. Questions were solicited and answers provided to the satisfaction of the patient/family/POA.
[2023-10-22] VITALS (7 sets, daily range): BP systolic 110–145; BP diastolic 65–93; PULSE 63–81; RESP 12–17; TEMP 36.8–37.4; O2SAT 98–100; BMI 18.2
--- NOTE | ~2023-10-22 | XR_ITS ---
EXAMINATION: XR abdomen/kub 1V DATE: 10/22/2023 12:12 INDICATION: Nephrolithiasis for preprocedural evaluation prior to planned extracorporeal shockwave li thotripsy. TECHNIQUE: A supine view of the abdomen on 2 radiographs was obtained. COMPARISON: 10/04/2023 FINDINGS: No change in position of a left internal ureteral stent with loops formed in a lower pole calyx of th e left kidney and in the bladder. There is a 1.6 x 0.9 cm ovoid stone in the left renal pelvis along the apex of the ureteral stent. Multiple surgical clips the upper abdomen and anastomotic suture line in the left lower quadrant consistent with prior cholecystectomy and gastric bypass procedure. Large amount of stool scattered throughout the colon which can be seen with constipation. Lung bases are c lear. Heart size is normal. Prominent unremarkable. IMPRESSION: 1. Unchanged 1.6 x 0.9 cm stone at the left renal pelvis and unchanged left internal ureteral stent i n expected position. 2. Large amount of stool which could be seen with constipation. Reviewed, dictated and finalized at location A. ME PLATER IMPRESSION: 1. Unchanged 1.6 x 0.9 cm stone at the left renal pelvis and unchanged left int ernal ureteral stent in expected position. 2. Large amount of stool which could be seen with constipation.
[2023-10-22 12:30] LABS: Glucose Point of Care 77 mg/dl (65-105)
[2023-10-22] MEDS: LACTATED RINGERS 1,000 ML 30 ML IV CONT ×2 (13:03→14:30)
--- NOTE | 2023-10-22 13:15 | PM.IMHP ---
H&P: HPI History of Present Illness Date/Time: 10/22/23 13:15 Chief Complaint: 1.6 cm left renal calculus Narrative: 23-year-old male who had a stent placed for an obstructing 1.6 cm left UPJ/renal calculus. Patient now presents for lithotripsy of this left renal calculus. Review of Systems Review of Systems: All systems reviewed & are unremarkable except as noted in HPI and below PMFSH Past Medical History Medical History Anxiety Cystic fibrosis Diabetes type 2, controlled Surgical History Surgical History History of pancreatectomy Family History Family History Other Carcinoma of colon Colon polyp Diabetes mellitus Heart disease Hypertension Thyroid disorder Social History Social History Smoking status: Current every day smoker Tobacco type: e-cigarettes/vaping Alcohol intake: never Alcohol use details: VERY RARE Substance use: current Substance use type: marijuana Living arrangements: with family Spiritual care concerns: No Meds Home Medications and Allergies Home Medications Medication Instructions Recorded Confirmed Type albuterol sulfate 90 mcg/actuation 1 inh inhalation Q4H PRN shortness 11/12/21 10/13/23 Rx aerosol inhaler of breath or wheezing #8.5 grams dyeqhd-nsxqrcjs-bkpjmoz 3 cap PO TIDWM 01/23/22 10/13/23 History 12,000-38,000-60,000 unit capsule,delayed rel (Creon) duloxetine 60 mg capsule,delayed 60 mg PO DAILY #30 caps 03/23/23 10/13/23 Rx release tramadol 50 mg tablet 50 mg PO Q6H PRN Pain 10/13/23 10/13/23 History Allergies Allergy/AdvReac Type Severity Reaction Status Date / Time morphine Allergy Intermediate Swelling Verified 10/22/23 12:48 Sulfa (Sulfonamide Allergy Unknown Hives Verified 10/22/23 12:48 Antibiotics) Vital Signs Vital Signs - 24 hr 10/22/23 12:50 Temperature 37.4 C Pulse Rate 81 Respiratory Rate 16 Blood Pressure 145/92 H Pulse Oximetry 100 Oxygen Delivery Room Air Exam Const: General: cooperative and comfortable HENMT: Head: normal to inspection Chest: Chest palpation & inspection: normal inspection of the chest Resp: Effort & Inspection: normal respiratory effort Cardio: Rate: regular rate Rhythm: regular rhythm Assessment and Plan Assessment and plan (1) Left renal stone: Code(s): N20.0 - Calculus of kidney Status: Acute Assessment and Plan: Proceed with left renal lithotripsy
--- NOTE | 2023-10-22 13:17 | WPDHPUPDATE1 ---
History and Physical Update Update Date/Time: 10/22/23 13:17 History and Physical has been reviewed, including an updated exam of the patient. There are NO changes in the patient's condition. Risks, benefits, and alternatives have been discussed and questions answered. Patient agrees to proceed with procedure. Proceed with left renal lithotripsy
[2023-10-22] MEDS: ceFAZolin 2 GM/D5W 50 ML 2 GM/50 ML BAG IVPB (13:30)
--- NOTE | 2023-10-22 14:11 | W.PM.PROC2 ---
Procedure Note - Detailed Date of Procedure 10/22/23 Pre-op Diagnosis left renal calculus 1.6 cm Post-op Diagnosis Same Procedure Performed Lithotripsy of left renal calculus Surgeon Keenan Randall MD Anesthesia General Description of Procedure Patient is taken to the operative suite correctly identified. Once anesthesia was obtained 2500 shocks were given the stone. He has a very large stone but appeared to have very good fragmentation with this 1st treatment. Patient is taken recovery stable condition. He will follow-up in 7-10 days with KUB. I will make a decision regarding whether he will need a repeat CT prior to removal of this stent to make sure there was no residual stones present. This completes dictation on this patient. Please send a copy of this op note to my office Estimated Blood Loss 0 Drains Yes (Has indwelling stent already) Packing No Pathology None sent Complications No immediate complications Condition Stable Disposition PACU
[2023-10-22 14:23] LABS: Glucose Point of Care 88 mg/dl (65-105)
[2023-10-22] MEDS: traMADol HCL (*CRX) 50 MG TABLET PO (15:15)
== END 2023-10-22 15:31 | disposition home or self-care (01) ==
PROVIDERS: PCP Family Medicine; Visit Provider Urology
PROC: (CPT 50590; principal; 2023-10-22 14:00)
DX: N20.0 Calculus of kidney (principal); F41.9 Anxiety disorder, unspecified; E11.9 Type 2 diabetes mellitus without complications; E84.9 Cystic fibrosis, unspecified; F17.290 Nicotine dependence, other tobacco product, uncomplicated; F12.90 Cannabis use, unspecified, uncomplicated; Z79.51 Long term (current) use of inhaled steroids; Z79.891 Long term (current) use of opiate analgesic; Z96.0 Presence of urogenital implants; Z90.410 Acquired total absence of pancreas; Z82.49 Family history of ischemic heart disease and other diseases of the circulatory system; Z80.0 Family history of malignant neoplasm of digestive organs
CPT/HCPCS: 50590; 36415; 74018; 82948; 85610; 85730; 87086; A9270; J0690; J2250; J2405; J2704; J3010; J7120

== ENCOUNTER 2023-11-05 13:18 | Outpatient (CLI) | payer OTHER, SELFPAY ==
--- NOTE | ~2023-11-05 | XR_ITS ---
EXAMINATION: XR abdomen/kub 1V DATE: 11/05/2023 13:39 INDICATION: Kidney stone and stenting TECHNIQUE: A supine view of the abdomen on 2 radiographs was obtained. COMPARISON: 10/22/2023 FINDINGS: No interval change in a left intrarenal stent which remains in expected position with loops formed in expected location of an inferior calyx of the left kidney and in the bladder. The large ovoid stone previously seen near the apex of the ureteral stent is no longer visualized. No residual stone/stone fragments seen either the kidney or along the course of the ureter. There are couple anastomotic sutu re lines in the left abdomen. Cholecystectomy clips in right upper quadrant. There are additional liana gical clips in the epigastric region. IMPRESSION: 1. Left intraureteral stent remains in expected position with no evident residual stone or stone frag ments post interval lithotripsy. Reviewed, dictated and finalized at location A. CIATE PROFESSOR OF ART HISTORY IMPRESSION: 1. Left intraureteral stent remains in expected position with no evident residu al stone or stone fragments post interval lithotripsy.
== END 2023-11-05 13:19 | disposition home or self-care (01) ==
LOC: ANHIMG 13:20
PROVIDERS: PCP Family Medicine; Visit Provider Urology
DX: N20.0 Calculus of kidney (principal); Z96.0 Presence of urogenital implants
CPT/HCPCS: 74018

== ENCOUNTER 2023-11-13 05:59 | Emergency (ER) | payer OTHER, SELFPAY ==
--- NOTE | ~2023-11-13 | CT_ITS ---
EXAMINATION: CT abdomen pelvis w con DATE: 11/13/2023 09:27 INDICATION: Intermittent upper abdominal/epigastric pain since midnight. Nausea. History of pancreati tis. TECHNIQUE: Computed tomography (CT) of the abdomen and pelvis was performed with 100 CC Omnipaque 350 intravenous contrast. Automated exposure control and iterative reconstruction technique were employe d. Exam dose: 227.95 mGy-cm total exam DLP. COMPARISON: 11/13/2023 right upper quadrant abdominal ultrasound examination 10/04/2023 CT abdomen pelvis FINDINGS: The lung bases are clear. Normal heart size. No pericardial or pleural effusion. The spleen is absent. The pancreas is partially absent consistent with patient given history of parti al pancreatectomy. There is diffuse hepatic steatosis. No hepatic space-occupying mass lesion is evident. Status post cholecystectomy. No bile duct dilatation is detected. Normal morphology of the adrenal glands. No renal mass lesion is detected on either side with the exception of a small posterior mid left edvin l cyst. Left internal urinary stent with proximal pigtail in the lower pole left renal collecting structures, distal pigtail in the left posterior lateral urinary bladder just beyond the ureterovesical junction . There is mild left hydroureteronephrosis with some enhancement of the left renal collecting structure s including left renal pelvis as well as left ureter; infection is not excluded. The urinary bladder and prostate gland are otherwise unremarkable. There is a prominent amount of fecal material in the rectum and colon consistent with constipation. N o bowel obstruction or intraperitoneal free air is detected. Normal caliber of the abdominal aorta. There are shotty nonenlarged periaortic and aortocaval lymph n odes. No intraperitoneal or retroperitoneal or pelvic mass lesion or adenopathy or ascites is evident . Chronic mild cupping of the superior vertebral endplate of T10. No suspicious osteolytic or osteoblas tic lesions. IMPRESSION: Interval mild left hydroureteronephrosis since 10/04/2023 despite persistent left pr internship al urinary stent Mild enhancement of the left renal collecting structures including left renal pelvis, and left ureter , which may indicate infection Prominent amount of fecal material in the rectum and colon again noted Status post cholecystectomy, splenectomy and partial pancreatectomy Reviewed, dictated and finalized at [facility]. Reviewed, dictated and finalized at [facility]. 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
--- NOTE | ~2023-11-13 | US_ITS ---
EXAMINATION: US right upper quadrant DATE: 11/13/2023 08:59 INDICATION: Upper abdominal pain. Elevated bilirubin. Partial pancreatectomy. TECHNIQUE: Multiple grayscale and Doppler ultrasound images of the abdomen were obtained. COMPARISON: CT abdomen and pelvis 10/04/2023 FINDINGS: The expected area of the pancreas is obscured by bowel gas. The liver is normal without foc al lesion. There is antegrade flow in main portal vein. The gallbladder is absent. The common duct is normal and measures 3 mm. IMPRESSION: 1. No etiology for the patient's symptoms. Reviewed, dictated and finalized at location [facility]. 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
[2023-11-13 05:59] VITALS: BP 131/90; PULSE 76; RESP 14; TEMP 36.4; O2SAT 100
[2023-11-13 06:53] LABS: Basophils Absolute Auto 0.1 K/mm3 (0.0-0.1); Basophils Percent Auto 0.7 % (0.2-1.2); Eosinophils Absolute Auto 0.3 K/mm3 (0-0.3); Eosinophils Percent Auto 2.5 % (0-4.4); Hematocrit 42.3 % (42.0-52.0); Immature Granulocyte Absolute 0.03 K/mm3 (0.00-0.031); Immature Granulocyte Percent A 0.3 % (0-0.5); Lymphocytes Absolute Auto 3.54 K/mm3 (0.9-3.2); Lymphocytes Percent Auto 31.4 % (18.3-44.2); Mean Corpuscular HGB Conc 33.1 g/dl (32-36); Mean Corpuscular Hemoglobin 30.5 pg (26-34); Mean Corpuscular Volume 92.2 fl (80-100); Mean Platelet Volume 10.4 fl (7.4-10.4); Monocytes Absolute Auto 1.2 K/mm3 (0.1-0.6); Monocytes Percent Auto 10.6 % (2.6-8.5); Neutrophils Absolute Auto 6.1 K/mm3 (1.3-6.7); Neutrophils Percent Auto 54.5 % (45.5-73.1); Platelet Count Result 312 k/mm3 (150-375); Red Blood Count 4.59 M/mm3 (4.6-6.20); Red Cell Distribution Width 13.1 % (11.5-14.5); White Blood Count 11.3 K/mm3 (4.5-10.0)
[2023-11-13 06:56] LABS: Alanine Aminotransferase 25 U/L (6-50); Albumin Level 4.6 g/dL (3.5-5.1); Alkaline Phosphatase 169 U/L (38-126); Anion Gap 10 mmol/L (8-16); Aspartate Amino Transferase 38 U/L (17-59); Bilirubin,Total 2.6 mg/dL (0.2-1.3); Blood Urea Nitrogen 6 mg/dL (9-20); Calcium 9.2 mg/dL (8.4-10.2); Carbon Dioxide 29 mmol/L (22-30); Chloride 101 mmol/L (98-107); Estimated Glomerular Filt Rate > 60; Glucose 125 mg/dL (65-110); Potassium 3.5 mmol/L (3.4-5.0); Sodium 140 mmol/L (137-145)
[2023-11-13 07:01] VITALS: BP 104/48; PULSE 60; RESP 16; O2SAT 99
[2023-11-13 07:04] LABS: Lipase < 10 U/L (23-300)
--- NOTE | 2023-11-13 07:06 | ED.ABDPAIN ---
HPI - Abdominal Pain General Chief Complaint: Abdominal Pain Stated Complaint: abd pain Time Seen by Provider: 11/13/23 07:03 History of Present Illness HPI narrative: Patient is a 23-year-old male who presents to the emergency department this morning complaining of mid epigastric abdominal pain which started yesterday. Patient states that he does have a history of pancreatitis and states that this felt very similar to the last time he had pancreatitis. Patient states that since the pain started yesterday it has been constant although the intensity of it fluctuates. He denies any nausea or vomiting. Patient denies any additional symptoms including chest pain, shortness of breath, dysuria, hematuria, constipation, diarrhea, melena, hematochezia, fevers or chills. Patient also denies any headaches, dizziness, lightheadedness, blurry visions, focal weakness, numbness and or tingling. There are no other modifying, alleviating, or precipitating factors at this time. Related Data Home Medications Medication Instructions Recorded Confirmed [id number] 3 cap PO TIDWM 01/23/22 10/13/23 12,000-38,000-60,000 unit capsule,delayed rel (Creon) tramadol 50 mg tablet 50 mg PO Q6H PRN Pain 10/13/23 10/13/23 Allergies Allergy/AdvReac Type Severity Reaction Status Date / Time morphine Allergy Intermediate Swelling Verified 10/22/23 12:48 Sulfa (Sulfonamide Allergy Unknown Hives Verified 10/22/23 12:48 Antibiotics) Review of Systems Review of Systems: All systems are reviewed and are negative unless stated otherwise in the HPI. [facility] Past Medical History Medical History Anxiety Cystic fibrosis Diabetes type 2, controlled Surgical History Surgical History History of pancreatectomy Family History Family History Other Carcinoma of colon Colon polyp Diabetes mellitus Heart disease Hypertension Thyroid disorder Social History Social History Smoking status: Current every day smoker Tobacco type: e-cigarettes/vaping Alcohol intake: never Alcohol use details: VERY RARE Substance use: current Substance use type: marijuana Living arrangements: with family Spiritual care concerns: No Exam Narrative: General: Alert, awake, afebrile, in no acute distress. HEENT: PERRL, no rhinorrhea, no post nasal drip, oropharynx clear. Neck: Trachea midline, no JVD, no lymphadenopathy. Cardiovascular: Regular rate and rhythm, no murmurs, rubs or gallops, no peripheral edema. Respiratory: Clear to auscultation bilaterally, no tachypnea, no wheezing, no rhonchi, no rubs, no respiratory distress. Abdomen: Soft, tenderness to palpation over the mid epigastric region, nondistended, no rebound, no guarding, no peritoneal signs. Musculoskeletal: No joint swelling or deformity, normal muscle tone. Skin: No rashes or petechia, no signs of infection. Psychiatric: Alert and oriented, normal behavior and judgment for situation. Neurological: Alert and oriented to person, place, and time. Follows all commands. No focal deficits, speech is clear and fluent. Course Vital Signs Vital signs: Vital Signs Temperature 97.6 F 11/13/23 05:59 Pulse Rate 76 11/13/23 05:59 Respiratory Rate 14 11/13/23 05:59 Blood Pressure 131/90 11/13/23 05:59 Pulse Oximetry 100 11/13/23 05:59 Oxygen Delivery Room Air 11/13/23 05:59 Temperature 97.6 F 11/13/23 05:59 Pulse Rate 62 11/13/23 07:31 Respiratory Rate 15 11/13/23 07:31 Blood Pressure 136/79 11/13/23 07:31 Pulse Oximetry 97 11/13/23 07:31 Oxygen Delivery Room Air 11/13/23 05:59 MDM - Abdominal Pain MDM Narrative Medical decision making narrative: The patient was evaluated by myself in the emergen
[2023-11-13] MEDS: SODIUM CHLORIDE 0.9% IV 1,000 ML 999 ML IV CONT (07:09)
[2023-11-13 07:31] VITALS: BP 136/79; PULSE 62; RESP 15; O2SAT 97
[2023-11-13 08:00] LABS: Appearance Urine Cloudy (Clear); Bacteria Urine None Seen /hpf; Bilirubin Urine Negative (Negative); Blood Urine 3+ (Negative); Calcium Oxalate Crystals Urine Present /hpf; Color Urine Yellow (Yellow); Glucose Urine UA Negative (Negative); Ketones Urine Negative (Negative); Leukocyte Esterase Ur 2+ LEU/UL (Negative); Need Manual Microscopic Reviewed; Nitrate Urine Negative (Negative); Non Pathogenic Casts 0-2; Protein Urine 1+ mg/dL (Negative); RBC Urine >100 /hpf (0-2); Specific Grav Ur 1.012 (1.001-1.035); Squamous Epithelial Cell Urine Occasional /hpf (Few); Urobilinogen Urine 0.2 mg/dL (<2.0); WBC Urine >100 /hpf
[2023-11-13 08:02] LABS: Add Urine Microscopic? YES
[2023-11-13] MEDS: fentaNYL CITRATE INJ (*CRX) 100 MCG/2 ML VIAL 50 MCG IV PUSH (08:07)
[2023-11-13] MEDS: ONDANSETRON INJ 4 MG/2 ML VIAL IV PUSH (08:07)
[2023-11-13] MEDS: fentaNYL CITRATE INJ (*CRX) 100 MCG/2 ML VIAL 25 MCG IV PUSH (11:32)
[2023-11-13 11:36] LABS: Lactic Acid Reflex 0.9 mmol/L (0.7-2.0)
== END 2023-11-13 12:42 | disposition home or self-care (01) ==
PROVIDERS: Student in an Organized Health Care Education/Training Program; Emergency Provider Emergency Medicine; PCP Family Medicine
DX: N39.0 Urinary tract infection, site not specified (principal); K59.00 Constipation, unspecified; E84.9 Cystic fibrosis, unspecified; E11.9 Type 2 diabetes mellitus without complications; F17.290 Nicotine dependence, other tobacco product, uncomplicated; Z96.0 Presence of urogenital implants; Z87.442 Personal history of urinary calculi; Z90.411 Acquired partial absence of pancreas; N13.30 Unspecified hydronephrosis; Z90.49 Acquired absence of other specified parts of digestive tract; Z90.81 Acquired absence of spleen
CPT/HCPCS: 36415; 74177; 76705; 80053; 81001; 83605; 83690; 85025; 87040; 87086; 96361; 96365; 96375; 96376; 99284; J0696; J2405; J3010; J7030; Q9967

== ENCOUNTER 2023-11-24 12:53 | Outpatient (CLI) | payer OTHER, SELFPAY ==
--- NOTE | ~2023-11-24 | CT_ITS ---
Non-contrast CT scan of the Abdomen and Pelvis Clinical indication: Kidney stone Technique: 2.5 mm axial scans were obtained through the abdomen and pelvis without intravenous or or al contrast. Dose reduction technique was used on this scan by utilizing automated exposure control a nd iterative reconstruction technique. The dose-length product (DLP) was 208.90 mGy-cm. COMPARISON: 11/13/2023 Findings: Images through the lung bases reveal no abnormalities. Left ureteral stent in place. Partial minimal amorphous debris at the left lower pole. No left ureter al stent present. Minimal fullness of left renal collecting system noted. No right renal or right ure teral stone. No right hydronephrosis. The liver, pancreas, and adrenals appear normal. Patient is status post splenectomy and cholecystecto my. There is no aortic aneurysm. There is no evidence of bowel obstruction. Large amount of stool suggests constipation. Images through the pelvis were performed. There is no evidence of ascites or lymphadenopathy. Urinary bladder unremarkable. No pelvic mass seen. Impression: Left ureteral stent with minimal left hydronephrosis. Possible minimal stone debris at the left lower pole. Constipation. Reviewed, dictated and finalized at [facility]. 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 Possible minimal stone de bris at the left lower pole. Constipation.
== END 2023-11-24 12:54 | disposition home or self-care (01) ==
LOC: ANHIMG 12:54
PROVIDERS: PCP Family Medicine; Visit Provider Urology
DX: N20.0 Calculus of kidney (principal); Z96.0 Presence of urogenital implants; K59.00 Constipation, unspecified
CPT/HCPCS: 74176

== ENCOUNTER 2023-12-04 01:03 | Day surgery (SDC) | payer OTHER, SELFPAY ==
[2023-12-03 08:38] VITALS: BMI 18.2
--- NOTE | 2023-12-03 08:38 | PC.NURSE ---
Report to the Outpatient Waiting Room, entrance under the green pavilion located off [facility], at time 1030 on date 12/04/23. Planned Procedure Time: 1230. Time changes happen often and if your time is changed the preop area will call you the afternoon before. - You and your visitor will be asked to self-screen and do not enter if you have any COVID symptoms. - A mask is optional within the hospital at this time. Patients may have clear liquids (water, carbonated beverages, clear teas, apple juice) until 3 hours prior to surgery with a maximum of 20 ounces. - No food from midnight until time of surgery Take the following medications with a SIP of water the morning of surgery: INHALER IF NEEDED DO NOT STOP ANY OF YOUR OTHER PRESCRIPTION MEDICATIONS PRIOR TO SURGERY ?EXCEPT THE FOLLOWING Medications to discontinue per physician: N/A Date to take last dose: N/A Please no make-up, nail hungarian, hairspray, perfume, deodorant, or body powder the day of surgery. No jewelry (including any body piercings) or valuables the day of surgery, leave them at home. Please take a shower or bath the night before, or the morning of, surgery with an antibacterial soap. Wear comfortable, loose fitting clothing. - Jewelry must be removed prior to entering the operating room. Rings and piercings that are not removed may be cut off. - The hospital will not accept responsibility for valuables. - Please leave all valuables, including medications, at home the day of surgery. If you are going home after surgery, a licensed miniature train driver must drive you home. - NO public transportation without another adult if you receive anesthesia. - We recommend that an adult stay with you for 24 hours following discharge. - We also recommend that you do not drive, make important decision, drink alcoholic beverages, or take any drugs that were not prescribed by your health care provider for at least 24 hours after your discharge time. Follow any additional instructions given to you from your surgeon. If you or anyone in your household have experienced Covid symptoms in the past week, please notify your surgeon or the nurse liaison at the phone number below for possible testing. Telephone instructions given to PT Rahat WELLINGTON and asked if any additional questions and then verbalized understanding. Patient advised to call surgeon office or pre surgery nurse liaison [phone] if any additional questions.
--- NOTE | 2023-12-04 10:39 | WPDHPUPDATE1 ---
History and Physical Update Update Date/Time: 12/04/23 10:39 History and Physical has been reviewed, including an updated exam of the patient. There are NO changes in the patient's condition. Risks, benefits, and alternatives have been discussed and questions answered. Patient agrees to proceed with procedure. Proceed with cysto, left ureteral stent removal
[2023-12-04 10:44] VITALS: BP 125/82; PULSE 74; RESP 20; TEMP 37.4; O2SAT 99
[2023-12-04] MEDS: LACTATED RINGERS 1,000 ML 30 ML IV CONT (11:15)
[2023-12-04] MEDS: ceFAZolin 2 GM/D5W 50 ML 2 GM/50 ML BAG IVPB (11:15)
--- NOTE | 2023-12-04 11:32 | WPDANESEPPF ---
Anes - Initial Pre Proc Eval Procedure: Operation Date: 12/04/23 12:30 Proposed Procedures p Cystoscopy with Left Stent Removal - Keenan Randall MD Date/Time: 12/04/23 11:32 Surgeon: Keenan Randall MD Pre Op Diagnosis: kidney stones Patient Data Age: 23 Gender: M Height: 1.83 m Weight: 61 kg Allergies Allergy/AdvReac Type Severity Reaction Status Date / Time morphine Allergy Intermediate Swelling Verified 12/04/23 10:46 Sulfa (Sulfonamide Allergy Unknown Hives Verified 12/04/23 10:46 Antibiotics) Home Medications Medication Instructions Recorded Confirmed Type albuterol sulfate 90 mcg/actuation 1 inh inhalation Q4H PRN shortness 11/12/21 12/03/23 Rx aerosol inhaler of breath or wheezing #8.5 grams polyethylene glycol 3350 17 17 g PO PRN PRN Constipation 12/04/23 12/04/23 History gram/dose oral powder (Miralax) Patient hx anesthesia problems: none Family hx anesthesia problems: none Results Review: All pre-operative results and documents have been reviewed as part of the pre-operative evaluation. [facility] Past Medical History Medical History Anxiety Cystic fibrosis Diabetes type 2, controlled Surgical History Surgical History History of pancreatectomy Family History Family History Other Carcinoma of colon Colon polyp Diabetes mellitus Heart disease Hypertension Thyroid disorder Social History Social History Smoking status: Current every day smoker Tobacco type: e-cigarettes/vaping Alcohol intake: current Alcohol use details: VERY RARE Substance use: current Substance use type: marijuana Living arrangements: with family Spiritual care concerns: No Anes - Eval Final PreProcedure Day of Procedure 12/04/23 11:32 Patient weight: thin Heart: regular rate and rhythm Lungs: clear to auscultation Airway: Mallampati scale class II Neurological: alert and oriented Last oral intake: >/= 8 hours ASA classification: III Emergent: no Anesthetic plan: proceed Anesthesia type and monitoring: general GIVS and standard monitoring Results Review: All pre-operative results and documents have been reviewed as part of the pre-operative evaluation. Informed Consent: The patient's anesthetic plan and its attendant risks and benefits were discussed with the patient/family/POA. Questions were solicited and answers provided to the satisfaction of the patient/family/POA.
[2023-12-04] MEDS: LIDOCAINE HCL 2% GEL UROJET 10 ML PKG MUCOUS MEM (12:31)
--- NOTE | 2023-12-04 12:39 | W.PM.PROC2 ---
Procedure Note - Detailed Date of Procedure 12/04/23 Pre-op Diagnosis Retained left ureteral stent Post-op Diagnosis Same Procedure Performed Flexible cysto with stent removal Surgeon Keenan Randall MD Anesthesia MAC Description of Procedure Patient is taken the operative suite and correctly identified. Once some sedation was administered he was prepped and draped usual sterile fashion. Flexible scope was inserted into the urethra. The stent was retrieved and removed in its entirety. 2% viscous lidocaine had been inserted urethra. He is taken recovery stable condition. He will follow-up in a month's time with a renal ultrasound. This completes dictation. Please send a copy of op note to my office Estimated Blood Loss 0 Drains No Packing No Pathology None sent Complications No immediate complications Condition Stable Disposition PACU
[2023-12-04 12:45] VITALS: BP 102/56; PULSE 67; RESP 15; TEMP 36.3; O2SAT 100
[2023-12-04 13:00] VITALS: BP 99/58; PULSE 56; RESP 14; O2SAT 100
[2023-12-04 13:08] VITALS: BP 108/68; PULSE 64; RESP 16
[2023-12-04 13:35] VITALS: BP 109/62; PULSE 59; RESP 16
== END 2023-12-04 13:47 | disposition home or self-care (01) ==
PROVIDERS: PCP Family Medicine; Visit Provider Urology
PROC: (CPT 52310; principal; 2023-12-04 12:30)
DX: Z46.6 Encounter for fitting and adjustment of urinary device (principal); E84.9 Cystic fibrosis, unspecified; E11.9 Type 2 diabetes mellitus without complications; F41.9 Anxiety disorder, unspecified; Z79.51 Long term (current) use of inhaled steroids; Z90.411 Acquired partial absence of pancreas; F17.290 Nicotine dependence, other tobacco product, uncomplicated
CPT/HCPCS: 52310; J0690; J1100; J2250; J2405; J3010; J7120

== ENCOUNTER 2024-03-09 01:11 | Emergency (ER) | payer OTHER, SELFPAY ==
--- NOTE | ~2024-03-09 | CT_ITS ---
CT of the Abdomen and Pelvis: Indication: Nausea and vomiting Technique: 2.5 mm axial scans were obtained through the abdomen and pelvis following intravenous adm inistration of 100 cc of Omnipaque 350. Dose reduction technique was used on this scan by utilizing a utomated exposure control and iterative reconstruction technique. The dose-length product (DLP) was 2 26.59 mGy-cm. COMPARISON: 11/24/2023 Findings: Scans through the lung bases are unremarkable. The liver, adrenals and kidneys are within normal limits. Patient is status post colectomy and cholec ystectomy. Pancreas somewhat poorly delineated, possibly relatively atrophic versus prior resection. No evidence of aortic aneurysm. No lymphadenopathy. No bowel obstruction. Possible wall thickening of the rectum/distal large bowel. Extensive stool pres ent. Images through the pelvis were performed. Urinary bladder unremarkable. No pelvic mass seen. No ascit es. Impression: Extensive stool suggests constipation. Possible wall thickening of the rectum/distal large bowel. Correlate for colitis/proctitis. Postoperative changes, as above. Reviewed, dictated and finalized at [facility]. Impression: Extensive stool suggests constipation. Possible wall thickening of the rectum/distal large bowel. Correlate for coliti s/proctitis. Postoperative changes, as above.
[2024-03-09 01:17] VITALS: BP 168/94; PULSE 45; RESP 18; TEMP 36.3; O2SAT 100
[2024-03-09 01:30] LABS: Basophils Absolute Auto 0.1 K/mm3 (0.0-0.1); Basophils Percent Auto 0.3 % (0.2-1.2); Eosinophils Percent Auto 0.1 % (0-4.4); Hematocrit 38.5 % (42.0-52.0); Hemoglobin 12.8 g/dL (14.0-18.0); Immature Granulocyte Absolute 0.09 K/mm3 (0.00-0.031); Immature Granulocyte Percent A 0.5 % (0-0.5); Lymphocytes Absolute Auto 1.78 K/mm3 (0.9-3.2); Lymphocytes Percent Auto 9.7 % (18.3-44.2); Mean Corpuscular HGB Conc 33.2 g/dl (32-36); Mean Corpuscular Hemoglobin 30.2 pg (26-34); Mean Corpuscular Volume 90.8 fl (80-100); Mean Platelet Volume 10.4 fl (7.4-10.4); Monocytes Absolute Auto 2.1 K/mm3 (0.1-0.6); Monocytes Percent Auto 11.5 % (2.6-8.5); Neutrophils Absolute Auto 14.3 K/mm3 (1.3-6.7); Neutrophils Percent Auto 77.9 % (45.5-73.1); Platelet Count Result 277 k/mm3 (150-375); Red Blood Count 4.24 M/mm3 (4.6-6.20); Red Cell Distribution Width 13.7 % (11.5-14.5); White Blood Count 18.4 K/mm3 (4.5-10.0)
[2024-03-09 01:41] LABS: Alanine Aminotransferase 42 U/L (6-50); Albumin Level 4.7 g/dL (3.5-5.1); Alkaline Phosphatase 170 U/L (38-126); Anion Gap 9 mmol/L (4-12); Aspartate Amino Transferase 105 U/L (17-59); Bilirubin,Total 3.3 mg/dL (0.2-1.3); Blood Urea Nitrogen 8 mg/dL (9-20); Calcium 9.3 mg/dL (8.4-10.2); Carbon Dioxide 25 mmol/L (22-30); Chloride 103 mmol/L (98-107); Estimated CRCL calculation 106 ml/min; Estimated Glomerular Filt Rate > 60; Glucose 151 mg/dL (65-110); Lipase 12 U/L (23-300); Potassium 3.7 mmol/L (3.4-5.0); Sodium 137 mmol/L (137-145)
--- NOTE | 2024-03-09 02:00 | ED.GENADULT ---
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 Symptoms started at 8:00 p.m.. Patient also has epigastric abdominal pain that he is tired is a crampy sensation. Pain is not 10 intensity and getting worse. He has never had pain like this nose is a symptoms. Patient denies fevers chills chest pain difficulty breathing or urinary symptoms. Patient does not have a gallbladder pancreas or spleen. Patient has history of gastroparesis. Patient uses marijuana on a daily basis. Related Data Home Medications Medication Instructions Recorded Confirmed polyethylene glycol 3350 17 17 g PO PRN PRN Constipation 12/04/23 12/04/23 gram/dose oral powder (Miralax) Allergies Allergy/AdvReac Type Severity Reaction Status Date / Time morphine Allergy Intermediate Swelling Verified 12/04/23 10:46 Sulfa (Sulfonamide Allergy Unknown Hives Verified 12/04/23 10:46 Antibiotics) [facility] Past Medical History Medical History Anxiety Cystic fibrosis Diabetes type 2, controlled Surgical History Surgical History History of pancreatectomy Family History Family History Other Carcinoma of colon Colon polyp Diabetes mellitus Heart disease Hypertension Thyroid disorder Social History Social History Smoking status: Current every day smoker Tobacco type: e-cigarettes/vaping Alcohol intake: current Alcohol use details: VERY RARE Substance use: current Substance use type: marijuana Living arrangements: with family Spiritual care concerns: No Exam Narrative: APPEARANCE: patient is vomiting during the interview Head: atraumatic. EYES: EOMI, NOSE: Atraumatic NECK: Trachea midline RESPIRATORY: No increased rate of breathing CTAB CARDIOVASCULAR: bradycardic ABDOMINAL: Abdomen is nondistended mild tenderness in the epigastric area without guarding or rebound MUSCULOSKELETAl: No obvious deformities NEURO: Alert. Moving 4/4 extremities SKIN:: Warm, dry. Normal color PSYCHIATRIC: Normal affect Course Vital Signs Vital signs: Vital Signs Temperature 97.4 F L 03/09/24 01:17 Pulse Rate 45 L 03/09/24 01:17 Respiratory Rate 18 03/09/24 01:17 Blood Pressure 168/94 H 03/09/24 01:17 Pulse Oximetry 100 03/09/24 01:17 Temperature 97.4 F L 03/09/24 01:17 Pulse Rate 45 L 03/09/24 01:17 Respiratory Rate 18 03/09/24 01:17 Blood Pressure 168/94 H 03/09/24 01:17 Pulse Oximetry 100 03/09/24 01:17 Medical Decision Making MDM Narrative Medical decision making narrative: -Course: 23-year-old male presenting with nausea and vomiting. Presentation consistent with cannabinoid hyperemesis. Patient given Haldol with resolution of nausea and is resting comfortably. Minor elevations of bilirubin AST which are likely a result from his pancreatic surgery. Incidentally found to have a urinary tract infection. No CVA tenderness to indicate pyelonephritis. Discussed admission versus discharge for the patient and he is comfortable trial a course of outpatient management. On re-evaluation patient is resting comfortably. He is tolerating p.o.. Feels much better and is ready to go home. He was educated on cannabinoid hyperemesis. Given return precautions. -DDX includes but is not limited to: gastritis, gastroenteritis, cyclic vomiting, surgical complication, intra-abdominal abscess -Co-morbidities complicating care: cystic fibrosis, history of gastroparesis, TPAIT -Social determinants of hea
[2024-03-09] MEDS: SODIUM CHLORIDE 0.9% IV 2,000 ML 999 ML IV CONT (02:06)
[2024-03-09] MEDS: ONDANSETRON INJ 4 MG/2 ML VIAL IV PUSH (02:07)
[2024-03-09] MEDS: FAMOTIDINE 20 MG/2 ML VIAL IV PUSH (02:07)
[2024-03-09] MEDS: HALOPERIDOL LACTATE 5 MG/ML VIAL IM (02:12)
[2024-03-09 02:19] LABS: Ethanol < 10 mg/dL (<10)
[2024-03-09 04:06] LABS: Amphetamine Screen Urine Negative (Negative); Barbiturate Screen Urine Negative (Negative); Benzodiazepines Screen Urine Negative (Negative); Cannabinoid Screen Urine Positive (Negative); Cocaine Screen Urine Negative (Negative); Methadone Screen Urine Negative (Negative); Opiate Screen Urine Positive (Negative); Phencyclidine Screen Urine Negative (Negative)
[2024-03-09 04:07] LABS: Appearance Urine Cloudy (Clear); Bacteria Urine 1+ /hpf; Bilirubin Urine Negative (Negative); Blood Urine Negative (Negative); Budding Yeast Urine Present /hpf; Color Urine Yellow (Yellow); Glucose Urine UA Negative (Negative); Ketones Urine 1+ mg/dL (Negative); Leukocyte Esterase Ur Trace LEU/UL (Negative); Need Manual Microscopic Reviewed; Nitrate Urine Positive (Negative); Non Pathogenic Casts 0-2; Protein Urine Negative (Negative); Squamous Epithelial Cell Urine None Seen /hpf (Few); WBC Urine 21-50 /hpf (0-3); pH Urine 5.5 (5.0-9.0)
[2024-03-09 04:10] LABS: Specific Grav Ur 1.061 (1.001-1.035)
[2024-03-09 04:11] LABS: Add Urine Microscopic? YES
[2024-03-09 06:34] VITALS: PULSE 68; RESP 16; O2SAT 98
== END 2024-03-09 06:35 | disposition home or self-care (01) ==
PROVIDERS: Emergency Provider Emergency Medicine; PCP Family Medicine
DX: R11.10 Vomiting, unspecified (principal); F12.220 Cannabis dependence with intoxication, uncomplicated; N39.0 Urinary tract infection, site not specified; F41.9 Anxiety disorder, unspecified; E11.9 Type 2 diabetes mellitus without complications; F17.290 Nicotine dependence, other tobacco product, uncomplicated
CPT/HCPCS: 36415; 74177; 80053; 80307; 81001; 83690; 85025; 87077; 87086; 87088; 87181; 96361; 96372; 96374; 96375; 99284; J0696; J1630; J2405; J7030; Q9967